=== PATIENT | male | born 1960 | race Caucasian/White ===

== ENCOUNTER → 2023-04-21 | Outpatient (REF) | payer MEDICAID, OTHER ==
[2023-04-21 18:02] LABS: IRON (FE) 16 UG/DL (65-175); PERCENT SATURATION 3.9 % (19.7-50.0); TOTAL IRON BINDING CAPACITY 410 UG/DL (250-425)
[2023-04-21 18:04] LABS: FERRITIN 5.8 NG/ML (10.5-307.3)
[2023-04-21 18:05] LABS: VITAMIN B12 LEVEL 279 PG/ML (211-911)
[2023-04-21 18:09] LABS: FOLATE > 24.0 NG/ML (>5.4)
== END ==
LOC: M LAB REF 17:03
PROVIDERS: ATTEND Nurse Practitioner Family
DX: D50.9 Iron deficiency anemia, unspecified (principal)